=== PATIENT | female | born 1990 | race Caucasian/White ===

== ENCOUNTER 2016-11-15 22:43 | Emergency (ER) | payer BC, OTHER ==
[2016-11-15 23:17] VITALS: BP 144/89; PULSE 72; TEMP 97.9; BMI 22.1
--- NOTE | 2016-11-16 00:23 | PDOC ---
History of Present Illness <Nghia Beauchamp - Last Filed: 11/16/16 00:21> - General History Source: Patient Exam Limitations: No Limitations - History of Present Illness Initial Comments: 11/16/16 00:27 The patient is a 26 year old female with significant past medical history of anxiety and IBS (nortriptyline) who presents to the ED with few weeks of dizziness and pressure to the back of the neck. Patient reports she started lexapro approximately 1 month ago for her anxiety and at that time, she started to feel dizzy, pressure and pain to the back of the neck and ears, headache, chills, diaphoresis, palpitations with somewhat SOB, occasional muscle spasm, and nausea. She states she feels like she is spinning. 2 weeks ago she informed her psychiatrist about her symptoms and was told to stop taking the lexapro. However, her symptoms persisted and she decided to visit her PMD today, where she was told to stop taking the nortriptyline because she might have serotonin syndrome. Patient became concerned because she does not want to be taken off the nortriptyline since it has helped her IBS and thus decided to come into the ER. Patient also reports taking motrin for headache with no improvement. The patient denies fever, cough, and chest pain. The patient denies abdominal pain, vomiting, and diarrhea. Allergies: NKDA Social History: No alcohol, tobacco, or drug use reported. Past Surgical History: [facility] PCP: Dr. Rachel Marquez <Jeniffer Mata - Last Filed: 11/16/16 00:28> - General Chief Complaint: Lightheaded Stated Complaint: SENT BY PCP Time Seen by Provider: 11/15/16 23:36 Past History - Past Medical History Anemia: No Asthma: No Cancer: No Cardiac Disorders: No CVA: No COPD: No CHF: No Dementia: No Diabetes: No GI Disorders: Yes (epigastric pain) Disorders: No HTN: No Hypercholesterolemia: No Liver Disease: No Psychiatric Problems: Yes (anxiety) Seizures: No Thyroid Disease: No - Psycho/Social/Smoking Cessation Hx Anxiety: No Suicidal Ideation: No Smoking Status: No Smoking History: Never smoked Have you smoked in the past 12 months: No Number of Cigarettes Smoked Daily: 0 Information on smoking cessation initiated: No Hx Alcohol Use: No Drug/Substance Use Hx: No Substance Use Type: None Hx Substance Use Treatment: No <Nghia Beauchamp - Last Filed: 11/16/16 00:21> <Jeniffer Mata - Last Filed: 11/16/16 00:28> - Past Medical History Allergies/Adverse Reactions: Allergies Allergy/AdvReac Type Severity Reaction Status Date / Time No Known Allergies Allergy Verified 11/15/16 22:50 Home Medications: Ambulatory Orders Escitalopram Oxalate [Lexapro -] 10 mg PO DAILY 11/15/16 Zolpidem Tartrate [Ambien] 10 mg PO HS 11/15/16 Review of Systems - Review of Systems Able to Perform ROS?: Yes Comments:: 11/16/16 00:28 +dizziness, pressure and pain to the back of the neck and ears, headache, chills , diaphoresis, palpitations with somewhat SOB, occasional muscle spasm, and nausea Absent: fever, cough, chest pain, abdominal pain, vomiting, and diarrhea <Jeniffer Mata - Last Filed: 11/16/16 00:28> *Physical Exam - Vital Signs Last Vital Signs Temp Pulse Resp BP Pulse Ox 97.9 F 72 14 144/89 100 11/15/16 22:53 11/15/16 22:53 11/15/16 22:53 11/15/16 22:53 11/15/16 22:53 <Nghia Beauchamp - Last Filed: 11/16/16 00:21> - Vital Signs Last Vital Signs Temp Pulse Resp BP Pulse Ox 97.9 F 72 14 144/89 100 11/15/16 22:53 11/15/16 22:53 11/15/16 22:53 11/15/16 22:53 11/15/16 22:53 - Physical Exam Comments: 11/16/16 00:28 GENERAL: Well-appearing, well-nourished. No apparent distress. HEENT: Normocephalic, atraumatic. PERRL, EOM intact. No nuchal rigidity CARDIOVASCULAR: Normal S1, S2. Regular rate and rhythm. PULMONARY: Clear to auscultation bilaterally. ABDOMEN: Soft, non-distended, non-tender. EXTREMITIES: Normal ROM in all four extremities. No gross deformities. SKIN: Warm, dry. No rash NEUROLOGICAL: Alert, awake, appropriate. Cranial nerves 2-12 intact. No deficits to light touch and temperature in face, upper extremities and lower extremities. No motor deficits in the in face, upper extremities and lower extremities. Normoreflexic in the upper and lower extremities. Muscle strength 5/5 in upper and lower extremities. Normal speech. <Jeniffer Mata - Last Filed: 11/16/16 00:28> *DC/Admit/Observation/Transfer <Nghia Beauchamp - Last Filed: 11/16/16 00:21> - Attestations Scribe Attestion: 11/16/16 00:28 Documentation prepared by Jeniffer Mata, acting as medical cash poster for Nghia Beauchamp MD <Jeniffer Mata - Last Filed: 11/16/16 00:28> Diagnosis at time of Disposition: Medication adverse effect, Head ache - Referrals Referrals: Rachel Marquez [Primary Care Provider] - Call tomorrow - Patient Instructions Additional Instructions: CONTINUE YOUR MEDICATIONS PRESCRIBED CALL YOUR PSYCHIATRIST TOMORROW PLENTY OF FLUIDS (WATER/GATORADE) BLAND DIET, ADVANCE TOLERATED EAT FREQUENT, SMALL MEALS THROUGHOUT THE DAY RETURN IF FEVER, VOMITING, SEVERE PAIN
== END 2016-11-16 00:36 | disposition home or self-care (01) ==
LOC: JER 22:43
DX: G44.40 Drug-induced headache, not elsewhere classified, not intractable (principal); T50.995A Adverse effect of other drugs, medicaments and biological substances, initial encounter; Y92.038 Other place in apartment as the place of occurrence of the external cause
CPT/HCPCS: 99282-25

== ENCOUNTER 2021-04-20 17:17 | Emergency (ER) | payer BC, OTHER ==
[2021-04-20] MEDS ORDERED: LACTATED RINGERS SOLUTION 1,000 ML/1,000 ML INFUS.BAG IV STA (17:45)
[2021-04-20] MEDS ORDERED: METOCLOPRAMIDE HCL INJECTION 10 MG/2 ML VIAL IVPB ONE (17:45)
[2021-04-20] MEDS ORDERED: METOCLOPRAMIDE HCL INJECTION 10 MG/2 ML VIAL ONE (18:30)
[2021-04-20] MEDS ORDERED: SODIUM CHLORIDE 0.9% 500 ML INFUS.BAG IV ONE (18:36)
[2021-04-20 18:38] LABS: BASO % 1.1 % (0-2.0); HEMATOCRIT 34.3 % (32.4-45.2); HEMOGLOBIN 11.5 GM/dl (10.7-15.3); LYMPH % 26.4 % (8-40); MCH 30.2 pg (25.7-33.7); MCHC 33.5 g/dl (32.0-36.0); MEAN CELL VOLUME 90.1 fl (80-96); MEAN PLT VOLUME 7.1 fl (7.5-11.1); MONO % 6.2 % (3.8-10.2); NEUT % 65.3 % (42.8-82.8); PLATELET COUNT 309 10^3/uL (134-434); RBC 3.81 M/mm3 (3.60-5.2); RDW 11.8 % (11.6-15.6); WHITE BLOOD COUNT 6.7 K/mm3 (4.0-10.8)
[2021-04-20 18:49] VITALS: BP 113/78; PULSE 80; TEMP 97.9; BMI 23.3
[2021-04-20 18:50] LABS: ALBUMIN 4.1 g/dl (3.4-5.0); ALK PHOS 47 U/L (45-117); ANION GAP 7 MMOL/L (8-16); BILIRUBIN,TOTAL 0.5 mg/dl (0.2-1); CALCIUM 9.2 mg/dl (8.5-10); CHLORIDE 100 mmol/L (98-107); CO2 28 mmol/L (21-32); CREATININE 0.6 mg/dl (0.55-1.3); GLUCOSE,RANDOM 87 mg/dl (74-106); MAGNESIUM 1.9 mg/dL (1.8-2.4); SGOT/AST 15 U/L (15-37); SGPT/ALT 20 U/L (13-61); SODIUM 135 mmol/L (136-145); TOT PROT 7.6 g/dl (6.4-8.2)
== END 2021-04-20 22:11 | disposition home or self-care (01) ==
LOC: FER 17:17
PROC: 3E033GC Introduction of Other Therapeutic Substance into Peripheral Vein, Percutaneous Approach (ICD-10-PCS; principal; 2021-04-20)
PROC: 3E033GC Introduction of Other Therapeutic Substance into Peripheral Vein, Percutaneous Approach (ICD-10-PCS; 2021-04-20)
DX: R00.2 Palpitations (principal); R11.0 Nausea
CPT/HCPCS: 36415; 71045-TC-FY; 80053; 83735; 84436; 84439; 84443; 84481; 84484; 85025; 93005; 99285-25